=== PATIENT | male | born 1985 | race Caucasian/White ===

== ENCOUNTER → 2024-01-04 | Outpatient (CLI) | payer OTHER, SELFPAY ==
--- NOTE | 2024-01-04 07:55 | RAD_ITS ---
STUDY: X-RAY CHEST REASON FOR EXAM: Male, 38 years old. SOB . Nasal drainage. TECHNIQUE: PA and lateral views of the chest. COMPARISON: None. FINDINGS: The lungs are clear and expanded. There is no demonstrated pleural abnormality. Normal size heart. Normal mediastinum and bennett. Normal visualized pulmonary arteries. Normal visualized aortic arch and descending thoracic aorta. Normal visualized thoracic spine. Normal visualized ribs, clavicles, and shoulders. There is no demonstrated abnormality of the visualized soft tissue structures of the upper abdomen. RAD/Chest PA and Lateral IMPRESSION: Normal x-ray examination of the chest. Electronically Signed: Melo Kahn MD at 9:06 EDT ,
--- NOTE | 2024-01-04 07:55 | RAD_ITS ---
STUDY: X-RAY - NASAL BONES REASON FOR EXAM: Male, 38 years old. ALLERGIC RHINITIS TECHNIQUE: 3 view(s) of the nasal bones. COMPARISON: None. FINDINGS: Normal nasal bones. Normal anterior nasal spine. There is no demonstrated soft tissue swelling. There is a 1.9 sono by 1.5 cm densely calcified osseous density in the medial aspect of the left frontal sinus. This most likely represents an osteoma. Normal visualized paranasal sinuses. RAD/Nasal Bones min 3 Views IMPRESSION: The sinuses are well aerated. 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 Electronically Signed: Melo Kahn MD at 9:07 EDT ,
== END | disposition home or self-care (01) ==
PROVIDERS: Referring Provider Chiropractor; Visit Provider Chiropractor
DX: R06.02 Shortness of breath (principal); J30.9 Allergic rhinitis, unspecified
CPT/HCPCS: 70160; 71046